=== PATIENT | female | born 1960 | race Caucasian/White ===

== ENCOUNTER → 2025-02-17 | Outpatient (CLI) | payer MEDICARE, SELFPAY ==
--- NOTE | 2025-02-17 | XR_ITS ---
Examination: Lumbar spine, 5 views Technique: Lumbar spine AP, lateral, coned lateral lower lumbar spine, bilateral obliques 5 views Exam date and time: February 17, 2025, 12:16 PM INDICATIONS: Low back pain beginning one year ago. FINDINGS: Severe osteopenia. Grade 2 spondylolisthesis L5 on S1 with advanced degenerative disc disease at this level Grade 1 anterolisthesis L4 on L5 No lumbar acute fracture Moderate lumbar spondylosis IMPRESSION: Grade 2 spondylolisthesis L5 on S1 with advanced degenerative disc disease at this level.
--- NOTE | 2025-02-17 | XR_ITS ---
Examination: Knee bilateral, 6 views Technique: Knee AP, lateral, oblique each knee total 6 views Date and time: February 17, 2025, 1221 hours INDICATIONS: Bilateral knee pain 10 years. FINDINGS: Significant osteopenia. Advanced bilateral tricompartment osteoarthritis, more severe lateral joint space right knee medial joint space left knee Right knee 13 mm posterior ossified joint body No fractures Moderate bilateral knee effusions IMPRESSION: Advanced bilateral tricompartment osteoarthritis.
== END | disposition home or self-care (01) ==
PROVIDERS: PCP Registered Nurse; Referring Provider Registered Nurse; Visit Provider Registered Nurse
DX: M17.0 Bilateral primary osteoarthritis of knee (principal); M43.17 Spondylolisthesis, lumbosacral region; M51.370 Other intervertebral disc degeneration, lumbosacral region with discogenic back pain only
CPT/HCPCS: 72110; 73562

== ENCOUNTER 2025-04-22 08:15 | Outpatient (AMB) | payer MEDICARE, SELFPAY ==
[2025-04-22 08:51] VITALS: BP 137/81; PULSE 63; RESP 18; TEMP 36.3; O2SAT 97; BMI 30.4
--- NOTE | 2025-04-22 08:51 | ORTHONT_ITS ---
Vital signs 04/22/25 08:51 Height 1.52 m Height Method Measured Weight 70.817 kg Weight Measurement Method Standing Scale BMI 30.4 BP 137/81 H Blood Pressure Source Automatic Cuff Blood Pressure Location Left Upper Arm Position Sitting Respiration 18 Pulse 63 Pulse Source Monitor Temp 97.3 F Temp Source Temporal Artery Scan Pulse Oximetry (%) 97 Oxygen Delivery Method Room Air Med/Allergies Allergies & Medications Allergies NKA* Allergy (Uncoded 04/22/25 08:52) Medication Reconciliation amlodipine 5 mg tablet 5 mg PO QDAY 04/22/25 [History Confirmed 04/22/25] empagliflozin 25 mg tablet (Jardiance) 25 mg PO QAM 04/22/25 [History Confirmed 04/22/25] levothyroxine 112 mcg capsule 112 mcg PO QDAY 04/22/25 [History Confirmed 04/22/25] metoprolol succinate 25 mg tablet,extended release 24 hr 25 mg PO BID 04/22/25 [History Confirmed 04/22/25] rosuvastatin 40 mg tablet 40 mg PO QDAY 04/22/25 [History Confirmed 04/22/25] sitagliptin phosphate 100 mg tablet (Januvia) 100 mg PO QDAY 04/22/25 [History Confirmed 04/22/25] Exam Exam Patient is in no acute distress and is cooperative with the examination today. Breathing is nonlabored. In no respiratory distress. Bilateral extremities were evaluated and demonstrates sensation intact to light touch. Palpable pedal pulses are present. No significant edema is present. Bilateral hips were examined. The patient has no pain with log roll of the hips. Internal rotation to 30 degrees and external rotation to 30 degrees is painless. Negative FADIR. The left knee was examined. The left knee is in varus alignment. Range of motion from 0-115 degrees. Knee is stable to varus and valgus as well as AP translation with <5mm. Patient has a negative McMurrays. There is no pain with patellofemoral compression and no crepitus noted. The knee is tender to palpation medially. The right knee was also examined. The right knee is in valgus alignment. Range of motion from 0-120 degrees. Knee is stable to varus and valgus as well as AP translation with <5mm. Patient has a negative McMurrays. There is no pain with patellofemoral compression and no crepitus noted. The knee is tender to palpation laterally Nonweightbearing x-rays were reviewed. This demonstrate windswept deformity with varus deformity on the left knee and valgus deformity on the right. These are nonweightbearing films. There is complete joint loss and obliteration Assessment and Plan Problem List (1) Degenerative arthritis of knee, bilateral: Status: Acute Plan: ASSESSMENT AND PLAN 1. Bilateral knee pain: The left knee exhibits more severe pain than the right. Both knees are likely [id number], with the right knee confirmed and the left knee suspected but not definitively diagnosed due to the absence of weightbearing x-rays. The patient has not had any injections previously. Cortisone injections are recommended as the next step in treatment. If the injections do not provide relief, knee replacement surgery will be considered. Weightbearing x-rays of both knees will be conducted today to confirm the extent of [id number] contact. The patient will return for injections once insurance authorization is obtained. 2. Diabetes mellitus: Diabetes is currently controlled with an A1c of 7.5 as of 03/04/2025. Follow-up: Next scheduled visit for injections. 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 Intake Visit Data Collection New Patient or Established: New Patient (never been to [facility]) Reason for Visit:: BILATERAL KNEE PAIN Seen by Clinical Staff ONLY (RN/MA): No Applications Coordinator Required: No PCP or OBGYN visit in last 3 months: Yes Hx Now: No Do You Feel Safe at Home: Yes Authorities Contacted: N/A Questionairres Past Medical History Past Medical History Have you ever been diagnosed with any of the following: Cardiology Problems Hypercholesterolemia: Yes Hypertension: Yes Endocrine Problems Diabetes Mellitus Type 2: Yes Hyperthyroidism: Yes Subjective Visit Visit for: new patient and knee (BILATERAL) Immunization / Flu Flu Vaccine in the Last 12 Months: Yes Flu Vaccine Exclusion Criteria: Already Received History of Present Illness Chief complaint: Bilateral knee pain Date of injury / onset of symptoms: 3 YERAS HISTORY OF PRESENT ILLNESS I, Anton Abel, have obtained verbal consent from the patient, to be recorded during this encounter which may include, but not limited to, medical history, examination, treatment plans, and relevant health information.? Patient was informed that recording will be read and reviewed by myself before inclusion in the medical chart. The patient presents for evaluation of bilateral knee pain, left worse than right. She reports that her bilateral knee pain started 3 years ago, with the left knee being more affected than the right. She has not received any injections and has undergone 3 sets of physical therapy, which have not provided relief. She has not taken any pain medication. She recalls a fall approximately 30 years ago, which she believes may have contributed to her current knee issues. She has tried anti-inflammatories. She has a history of diabetes, which is currently under control. Her A1c is 7.5 as of 03/04/2025. She also has a history of cholesterol, high blood pressure, and thyroid problems. Personal History Occupation: RETIRED Pain Pain level (0-10): 8 Pain duration: ALL DAY Pain location: anterior Pain quality: tingling Pain timing: night, increases with activity and stairs Associated signs & symptoms: numbness and weakness Ambulatory data Ambulatory device: none Treatments Number of previous injections: 0 Improvement with previous injections: No Number of Physical Therapy sessions: 2 Improvement with PT: No Improvement with NSAIDS: no Review of Systems Review of Systems: All systems negative unless otherwise noted in HPI.
--- NOTE | 2025-04-22 08:53 | XR_ITS ---
EXAMINATION: Bilateral knees 2 views Right lateral knee left lateral knee 2 views Bilateral Axuni single view TECHNIQUE: Bilateral AP knees standing single view, bilateral PA knees standing single view flexion Standing right lateral knee left lateral knee 2 views Bilateral axial knee single view total 5 views Date and time: April 22, 2025, 0914 hours INDICATIONS: Bilateral knee pain 30 years. FINDINGS: Moderate osteopenia Severe narrowing [id number] lateral joint space right knee Advanced osteoarthritis medial and patellofemoral joints right knee with moderate right knee effusion and ossified joint body posterior right joint space Severe narrowing medial joint space left knee Prominent osteoarthritis left patellofemoral joint Moderate left knee effusion No patellar dislocations IMPRESSION: Severe narrowing [id number] lateral joint space right knee Advanced osteoarthritis medial and patellofemoral joints right knee Severe narrowing medial joint space left knee, [id number] Prominent osteoarthritis left patellofemoral joint
== END 2025-04-22 08:55 | disposition home or self-care (01) ==
LOC: HODSRG 08:15
PROVIDERS: PCP Registered Nurse; Referring Provider Registered Nurse; Supervising Provider Orthopaedic Surgery Adult Reconstructive Orthopaedic Surgery; Visit Provider Orthopaedic Surgery Adult Reconstructive Orthopaedic Surgery
DX: M25.562 Pain in left knee (principal); M25.561 Pain in right knee; M17.0 Bilateral primary osteoarthritis of knee; E11.9 Type 2 diabetes mellitus without complications; I10 Essential (primary) hypertension
CPT/HCPCS: 73564; 99204; G0463

== ENCOUNTER 2025-04-29 09:31 | Outpatient (AMB) | payer MEDICARE, MEDICAID, SELFPAY ==
--- NOTE | 2025-04-29 09:47 | ORTHONT_ITS ---
Vital signs 04/29/25 09:48 Height 1.52 m Height Method Stated Weight 70.959 kg Weight Measurement Method Standing Scale BMI 30.7 BP 143/84 H Blood Pressure Source Automatic Cuff Blood Pressure Location Left Upper Arm Position Sitting Respiration 18 Pulse 66 Pulse Source Monitor Temp 98.3 F Temp Source Temporal Artery Scan Pulse Oximetry (%) 95 Oxygen Delivery Method Room Air Med/Allergies Allergies & Medications Allergies NKA* Allergy (Uncoded 04/29/25 09:49) Medication Reconciliation amlodipine 5 mg tablet 5 mg PO QDAY 04/22/25 [History Confirmed 04/29/25] empagliflozin 25 mg tablet (Jardiance) 25 mg PO QAM 04/22/25 [History Confirmed 04/29/25] levothyroxine 112 mcg capsule 112 mcg PO QDAY 04/22/25 [History Confirmed 04/29/25] metoprolol succinate 25 mg tablet,extended release 24 hr 25 mg PO BID 04/22/25 [History Confirmed 04/29/25] rosuvastatin 40 mg tablet 40 mg PO QDAY 04/22/25 [History Confirmed 04/29/25] sitagliptin phosphate 100 mg tablet (Januvia) 100 mg PO QDAY 04/22/25 [History Confirmed 04/29/25] Exam Exam Patient is in no acute distress and is cooperative with the examination today. Breathing is nonlabored. In no respiratory distress. Bilateral extremities were evaluated and demonstrates sensation intact to light touch. Palpable pedal pulses are present. No significant edema is present. Bilateral hips were examined. The patient has no pain with log roll of the hips. Internal rotation to 30 degrees and external rotation to 30 degrees is painless. Negative FADIR. The left knee was examined. The left knee is in varus alignment. Range of motion from 0-115 degrees. Knee is stable to varus and valgus as well as AP translation with <5mm. Patient has a negative McMurrays. There is no pain with patellofemoral compression and no crepitus noted. The knee is tender to palpation medially. The right knee was also examined. The right knee is in valgus alignment. Range of motion from 0-120 degrees. Knee is stable to varus and valgus as well as AP translation with <5mm. Patient has a negative McMurrays. There is no pain with patellofemoral compression and no crepitus noted. The knee is tender to palpation laterally WB x-rays were reviewed. This demonstrate windswept deformity with varus deformity on the left knee and valgus deformity on the right. These are weightbearing films. There is complete joint loss and obliteration Assessment and Plan Problem List (1) Degenerative arthritis of knee, bilateral: Status: Acute Plan: ASSESSMENT AND PLAN 1. Bilateral knee pain: The left knee exhibits more severe pain than the right. Both knees are likely [id number], with the right knee confirmed and the left knee suspected but not definitively diagnosed due to the absence of weightbearing x-rays. The patient has not had any injections previously. Cortisone injections are recommended as the next step in treatment. If the injections do not provide relief, knee replacement surgery will be considered. Recommend knee cortisone injection as patient would like to proceed with conservative treatment at this time. The risks and benefits of the procedure were reviewed with the patient and patient gave verbal consent to continue with the procedure. Procedure: performed by Dr. Abel Using sterile technique the Right knee was thoroughly prepped with alcohol, and approximately 1 cc of Depo-Medrol 80mg/mL and 4 cc of 0.2% ropivacaine was injected without resistance into the medial tibial femoral joint space. The patient tolerated the procedure. Recommend knee cortisone injection as patient would like to proceed with conservative treatment at this time. The risks and benefits of the procedure were reviewed with the patient and patient gave verbal consent to continue with the procedure. Procedure: performed by Dr. Abel Using sterile technique the leftknee was thoroughly prepped with alcohol, and approximately 1 cc of Depo- Medrol 80mg/mL and 4 cc of 0.2% ropivacaine was injected without resistance into the medial tibial femoral joint space. The patient tolerated the procedure. Advanced Care Planning Discussion Advance care planning discussed with:: patient and child Office Procedures GNS Level of Care Nursing/Assessment Patient Status: Established Patient Nursing Assessment/Reassesment: Medication Reconciliation, Update PMH in EMR and Vital Signs Coordination of Care: Complex Care and Chronic Disease 1-5, Education Complex Pt/Fam, Consent,records obtained, informed consent, Results/Orders obtained and Staff clarify orders Special Needs: Language special needs Established Patient Charge Established Patient Point Assignment: 95 Established Patient Point Charge: EP Level 3 (80-115) Medication Given Medication Given Medication Given: Yes Documented Dose Given: 2 Route: Infiitration Medication Given Medication Given Medication Given: Yes Documented Dose Given: 8 Route: Infiitration Office Meds methylprednisolone acetate 80 mg/mL suspension for injection Performing Provider: Anton Abel MD Performing Location: [facility] Administered by: Anton Abel MD on 04/29/25 11:20 Dose Route Admin Location Dispensed Lot Number Expiration Date Pack age [facility] [employer]op D[employer] 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 mg intra-articular KNEE 2 mL [id number] 01/13/27 [address]-7 [id number] [employer] ropivacaine (PF) 2 mg/mL (0.2 %) injection solution Performing Provider: Anton Abel MD Performing Location: [facility] Administered by: Anton Abel MD on 04/29/25 11:47 Dose Route Admin Location Dispensed Lot Number Expiration Date Pack age [facility] [employer] 40 mL Infiltration KNEE 40 mL [id number] 07/16/27 58159-542-10 [id number] [facility] Intake Visit Data Collection New Patient or Established: Established Patient (seen at [facility] within 3 years) Reason for Visit:: BILATERAL KNEE PAIN/XRAY POSS INJ Seen by Clinical Staff ONLY (RN/MA): 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 PCP or OBGYN visit in last 3 months: Yes Hx Now: No Do You Feel Safe at Home: Yes Authorities Contacted: N/A Questionairres Past Medical History Past Medical History Have you ever been diagnosed with any of the following: Cardiology Problems Hypercholesterolemia: Yes Hypertension: Yes Endocrine Problems Diabetes Mellitus Type 2: Yes Hyperthyroidism: Yes Subjective Visit Visit for: follow up visit, knee (BILATERAL) and x-rays (RESULTS) Immunization / Flu Flu Vaccine in the Last 12 Months: Yes Flu Vaccine Exclusion Criteria: Already Received History of Present Illness Chief complaint: Bilateral knee pain Date of injury / onset of symptoms: 3 YERAS HISTORY OF PRESENT ILLNESS I, Anton Abel, have obtained verbal consent from the patient, to be recorded during this encounter which may include, but not limited to, medical history, examination, treatment plans, and relevant health information.? Patient was informed that recording will be read and reviewed by myself before inclusion in the medical chart. The patient presents for evaluation of bilateral knee pain, left worse than right. She reports that her bilateral knee pain started 3 years ago, with the left knee being more affected than the right. She has not received any injections and has undergone 3 sets of physical therapy, which have not provided relief. She has not taken any pain medication. She recalls a fall approximately 30 years ago, which she believes may have contributed to her current knee issues. She has tried anti-inflammatories. She has a history of diabetes, which is currently under control. Her A1c is 7.5 as of 03/04/2025. She also has a history of cholesterol, high blood pressure, and thyroid problems. Personal History Occupation: RETIRED Pain Pain level (0-10): 8 Pain duration: ALL DAY Pain location: anterior Pain quality: tingling Pain timing: night, increases with activity and stairs Associated signs & symptoms: numbness and weakness Ambulatory data Ambulatory device: none Treatments Number of previous injections: 0 Improvement with previous injections: No Number of Physical Therapy sessions: 2 Improvement with PT: No Improvement with NSAIDS: no Review of Systems Review of Systems: All systems negative unless otherwise noted in HPI.
[2025-04-29 09:48] VITALS: BP 143/84; PULSE 66; RESP 18; TEMP 36.8; O2SAT 95; BMI 30.7
== END 2025-04-29 10:40 | disposition home or self-care (01) ==
LOC: HODSRG 09:32
PROVIDERS: PCP Registered Nurse; Referring Provider Registered Nurse; Supervising Provider Orthopaedic Surgery Adult Reconstructive Orthopaedic Surgery; Visit Provider Orthopaedic Surgery Adult Reconstructive Orthopaedic Surgery
DX: M17.0 Bilateral primary osteoarthritis of knee (principal); M25.562 Pain in left knee; M25.561 Pain in right knee
CPT/HCPCS: 99213; J1010; J2795; G0463